=== PATIENT | female | born 1980 | race American Indian/Alaskan Native ===

== ENCOUNTER 2019-05-20 07:39 | Day surgery (SDC) | payer MEDICAID ==
--- NOTE | 2019-05-20 09:46 | Anesthesia Consultation ---
Anesthesia Consult and Med Hx Date of service: 05/20/19 - Airway Anesthetic Teeth Evaluation: Good (some missing teeth, fillings) ROM Head & Neck: Adequate Mental/Hyoid Distance: Adequate Mallampati Class: Class II Intubation Access Assessment: Probably Good - Pre-Operative Health Status ASA Pre-Surgery Classification: ASA2 Proposed Anesthetic Plan: General - Pulmonary Hx Asthma: Yes (Not treated "in a while", has rescue inhaler) - Cardiovascular System Hx Hypertension: Yes (not diagnosed, BP consistently high) - Central Nervous System Hx Back Pain: Yes (L5-S1 spinal fusion (2016)) Hx Psychiatric Problems: No - Gastrointestinal Hx Gastroesophageal Reflux Disease: Yes (food related) - Endocrine Hx Hypothyroidism: Yes (Not being treated) - Other Systems Hx Alcohol Use: Yes (Occas) Hx Cancer: No Hx Obesity: Yes (BMI 38.3)
--- NOTE | 2019-05-20 09:47 | Anesthesia Day of Surgery ---
Anesthesia Day of Surgery - Day of Surgery Patient Examined: Yes Patient H&P Reviewed: Yes Patient is NPO: Yes
[2019-05-20] MEDS ORDERED: DILAUDID ONE (09:54)
[2019-05-20] MEDS ORDERED: DIPRIVAN 10 MG/ML IV ONE (09:54)
[2019-05-20] MEDS ORDERED: XYLOCAINE MPF 2% ONE (09:54)
[2019-05-20] MEDS ORDERED: PEPCID IV NR (10:00)
[2019-05-20] MEDS ORDERED: LACTATED RINGERS 1,000 ML IV SCH (10:00)
[2019-05-20] MEDS ORDERED: VERSED IV NR (10:00)
[2019-05-20] MEDS ORDERED: SILVER NITRATE TP ONE (10:02)
[2019-05-20] MEDS ORDERED: NACL 0.9% IR ONE (10:47)
[2019-05-20] MEDS ORDERED: ZOFRAN ONE (11:12)
[2019-05-20] MEDS ORDERED: TORADOL ONE (11:12)
--- NOTE | 2019-05-20 11:41 | Operative Report ---
Operative Report Operative Report: PREOPERATIVE DIAGNOSES: 1. Menorrhagia 2. contraception POSTOPERATIVE DIAGNOSES: 1-2 ANAY PROCEDURE PERFORMED: 1. Dilatation and curettage. 2. Hysteroscopy. 3. IUD insertion GROSS FINDINGS: Uterus was anteverted. The cervix is patulous and nulliparous without lesions. Adnexal examination was negative for masses. PROCEDURE: The patient was taken to the operating room where she was properly prepped and draped in sterile manner under general anesthesia. After bimanual examination, the cervix was exposed with a weighted vaginal speculum and the anterior lip of the cervix grasped with a vulsellum tenaculum. The uterus was sounded to a depth of 9 cm. The endocervical canal was then progressively dilated with Hanks and Hegar dilators to a #10 Hegar. The [facility] hysteroscope was then introduced into the uterine cavity using sterile saline solution as a distending media and with attached video camera. The endometrial cavity was distended with fluids and the cavity visualized. Multiple irregular areas of fluffy tissue aamongst some which appear uterine polyps were noted throughout the cavity. The coronal areas were visualized bilaterally with corresponding tubal ostia. There were no direct intraluminal lesions seen. The patient tolerated the procedure well. Several pictures were taken of the endometrial cavity and the hysteroscope removed from the cavity. A large sharp curet was then used to obtain a moderate amount of tissue, which was the sent to pathologist for analysis. The instrument was removed from the vaginal vault. Mirena IUD placed without difficulty. The patient was sent to recovery area in satisfactory postoperative condition.
[2019-05-20] MEDS ORDERED: PERCOCET 5/325 PO PRN (12:20)
[2019-05-20 12:50] VITALS: BP 144/74
--- NOTE | 2019-05-20 17:11 | Post Anesthesia Evaluation ---
- Post Anesthesia Evaluation Patient Participated: Yes Airway Patent: Yes Stable Respiratory Function: Yes Nausea/Vomiting: No Temp > 96.8F: Yes Pain Manageable: Yes Adequeate Hydration: Yes Anesthesia Complications: No Block Receding Appropriately: Yes
== END 2019-05-20 07:40 | disposition home or self-care (01) ==
LOC: OR 07:39
PROVIDERS: ATTEND Obstetrics & Gynecology
DX: Z30.430 Encounter for insertion of intrauterine contraceptive device (principal); N92.0 Excessive and frequent menstruation with regular cycle; N85.8 Other specified noninflammatory disorders of uterus; G43.909 Migraine, unspecified, not intractable, without status migrainosus; I10 Essential (primary) hypertension; K21.9 Gastro-esophageal reflux disease without esophagitis; E03.9 Hypothyroidism, unspecified; E66.9 Obesity, unspecified; Z68.38 Body mass index [BMI] 38.0-38.9, adult; Z72.89 Other problems related to lifestyle; Z98.890 Other specified postprocedural states; Z79.899 Other long term (current) drug therapy; Z91.013 Allergy to seafood
CPT/HCPCS: 58300; 58558; 81025; 88305; A4217; J1170; J1885; J2250; J2405; J2704; J7120

== ENCOUNTER 2020-05-10 18:47 | Emergency (ER) | payer MEDICAID ==
[2020-05-10 19:45] VITALS: BP 176/107
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
== END 2020-05-10 19:57 | disposition left against medical advice (07) ==
LOC: ED 18:47
DX: S16.1XXA Strain of muscle, fascia and tendon at neck level, initial encounter (principal); I10 Essential (primary) hypertension; J45.909 Unspecified asthma, uncomplicated; K21.9 Gastro-esophageal reflux disease without esophagitis; G43.909 Migraine, unspecified, not intractable, without status migrainosus; Z90.89 Acquired absence of other organs; Z91.040 Latex allergy status; Z53.21 Procedure and treatment not carried out due to patient leaving prior to being seen by health care provider; V49.9XXA Car occupant (driver) (passenger) injured in unspecified traffic accident, initial encounter; Y93.89 Activity, other specified; Y92.410 Unspecified street and highway as the place of occurrence of the external cause; Y99.8 Other external cause status